=== PATIENT | male | born 1935 | race Caucasian/White ===

== ENCOUNTER 2020-07-08 18:11 | Inpatient (IN) | payer MEDICARE ==
[~2020-07-08 18:11] MED LIST: AMIODARONE HCL200 MG PO; ASPIRIN CHEWABL81 MG PO; BUMETANIDE1 MG PO; CARDIZEM30 MG PO; CENTRUM COMPLE1 EACH PO; COLACE100 MG PO; COREG 6.25MG6.25 MG PO; COREG25 MG PO; DIGITEK125 MCG PO; ELIQUIS2.5 MG PO; ELIQUIS5 MG PO; FLAGYL500 MG PO; FUROSEMIDE 20MG20 MG PO; IMDUR 30MG TABL30 MG PO; LEVAQUIN750 MG PO; LEXAPRO20 MG PO; LIPITOR40 MG PO; LOW DOSE ASPIRI81 MG PO; MICRO-K10 MEQ PO; NEURONTIN300 MG PO; NITROQUIK SL0.4 MG SL; PLAVIX75 MG PO; SINEQUAN10 MG PO; SYNTHROID25 MCG PO; TOPROL XL 25MG25 MG PO; ULTRAM50 MG PO
[2020-07-08 19:24] LABS: BASOPHIL 0.2 % (0-2); EOSINOPHIL 0.7 % (0-7); HCT 38.8 % (42.0-52.0); HGB 12.7 g/dl (13.2-18.0); MCHC 32.7 g/dL (32.0-36.0); MCV 91.7 fL (78.0-100.0); MONOCYTE 8.6 % (0-12); MPV 10.1 fL (6.0-9.5); NEUTROPHIL 83.8 % (41-80); NRBC 0; PLT 273 K/uL (150-400); RBC 4.23 M/uL (4.70-6.00); RDW 14.8 % (11.5-14.0); WBC 5.8 K/uL (4.0-10.5)
[2020-07-08 19:28] LABS: INR 1.21 (0.9-1.2); PROTHROMBIN TIME 14.5 SECONDS (11.4-13.6); PTT 38.6 SECONDS (22.2-34.7)
[2020-07-08 19:36] LABS: BILIRUBIN - TOTAL 0.6 mg/dL (0.2-1.0); BUN/CREAT RATIO (CALC) 28.7 RATIO; CREATININE 1.01 mg/dL (0.67-1.17); MAGNESIUM 2.1 mg/dL (1.8-2.4)
[2020-07-08 19:41] LABS: PRO-BNP 3180 pg/mL (<450)
[2020-07-08 19:42] LABS: LACTIC ACID 1.8 mmol/L (0.4-1.9)
[2020-07-08 20:45] LABS: CORONAVIRUS 2019 SARS-COV-2 POSITIVE (NEGATIVE)
[2020-07-08 20:46] LABS: INFLUENZA A NAA NEGATIVE (NEGATIVE)
[2020-07-08 23:57] LABS: BILIRUBIN 1+ mg/dL (NEGATIVE); BLOOD 1+ Ery/uL (NEGATIVE); CLARITY CLEAR (CLEAR); COLOR YELLOW (YELLOW); GLUCOSE (U) NORMAL (NORMAL); LEUKOCYTES NEGATIVE Leu/uL (NEGATIVE); NITRITE NEGATIVE (NEGATIVE); PROTEIN 1+ mg/dL (NEGATIVE); SPECIFIC GRAVITY 1.025 (1.001-1.030); UROBILINOGEN 0.2 mg/dL (0.2-1.0)
[2020-07-09 00:21] LABS: BACTERIA TRACE; URINARY WBC RARE
[2020-07-09] MEDS ORDERED: DICLOFENAC SODI75 MG PO (02:43)
[2020-07-09] MEDS ORDERED: PRILOSEC20 MG PO (02:44)
[2020-07-09] MEDS ORDERED: ZOLOFT50 MG PO (02:45)
[2020-07-09 06:51] LABS: BASOPHIL 0.2 % (0-2); EOSINOPHIL 0.6 % (0-7); HCT 34.1 % (42.0-52.0); HGB 11.4 g/dl (13.2-18.0); LYMPHOCYTE 7.3 % (15-48); MCH 30.6 pg (25.0-31.0); MCHC 33.4 g/dL (32.0-36.0); MCV 91.4 fL (78.0-100.0); MONOCYTE 8.6 % (0-12); MPV 9.5 fL (6.0-9.5); NEUTROPHIL 82.4 % (41-80); NRBC 0; PLT 222 K/uL (150-400); RBC 3.73 M/uL (4.70-6.00); RDW 14.8 % (11.5-14.0); WBC 5.3 K/uL (4.0-10.5)
[2020-07-09 07:31] LABS: ALBUMIN 2.5 g/dL (3.4-5.0); BILIRUBIN - TOTAL 0.5 mg/dL (0.2-1.0); BUN/CREAT RATIO (CALC) 27.6 RATIO; CREATININE 0.98 mg/dL (0.67-1.17); GLOBULIN (CALCULATION) 3.6 g/dL; POTASSIUM 4.2 mmol/L (3.5-5.1); TOTAL PROTEIN 6.1 g/dL (6.4-8.2)
--- NOTE | 2020-07-09 11:00 | NUR ---
LIVES WITH SPOUSE; PT IS AN INPT; PLEASE ADVISE OF D/C NEEDS: PT CURRENTLY HAS COVID
[2020-07-10 04:01] LABS: BASOPHIL 0.1 % (0-2); EOSINOPHIL 0.1 % (0-7); HCT 34.1 % (42.0-52.0); HGB 11.3 g/dl (13.2-18.0); LYMPHOCYTE 3.1 % (15-48); MCH 30.2 pg (25.0-31.0); MCHC 33.1 g/dL (32.0-36.0); MCV 91.2 fL (78.0-100.0); MONOCYTE 9.4 % (0-12); MPV 9.8 fL (6.0-9.5); NEUTROPHIL 86.1 % (41-80); NRBC 0; PLT 259 K/uL (150-400); RBC 3.74 M/uL (4.70-6.00); RDW 14.8 % (11.5-14.0); WBC 7.4 K/uL (4.0-10.5)
[2020-07-10 04:21] LABS: BUN/CREAT RATIO (CALC) 31.4 RATIO; CREATININE 1.21 mg/dL (0.67-1.17); POTASSIUM 4.5 mmol/L (3.5-5.1)
--- NOTE | 2020-07-10 15:44 | NUR ---
07/10/20 Mr. Ross lives at home with his spouse. He has a rw, 3in1, cane, and 3in1. Discharge options of returning home with HH or a SNF placement with [facility] Ross. They prefer to return home with [facility]; affliation explained. - Will monitor for 02 needs. - PT recommended a tag meter operator. This is not a covered Medicare item. Mr. Ross declined the tag meter operator.
[2020-07-11 05:17] LABS: BASOPHIL 0 % (0-2); EOSINOPHIL 0 % (0-7); HCT 40.3 % (42.0-52.0); HGB 13.3 g/dl (13.2-18.0); LYMPHOCYTE 5.1 % (15-48); MCH 30.2 pg (25.0-31.0); MCV 91.6 fL (78.0-100.0); MONOCYTE 7.1 % (0-12); MPV 9.4 fL (6.0-9.5); NEUTROPHIL 86.3 % (41-80); NRBC 0; PLT 343 K/uL (150-400); RDW 14.8 % (11.5-14.0); WBC 5.9 K/uL (4.0-10.5)
[2020-07-11 05:40] LABS: BUN/CREAT RATIO (CALC) 40.2 RATIO; C-REACTIVE PROTEIN 17.1 mg/dL (<=0.90); CREATININE 1.17 mg/dL (0.67-1.17); POTASSIUM 4.6 mmol/L (3.5-5.1)
--- NOTE | 2020-07-11 10:56 | NUR ---
1000 PATIENT HAD 6 DEZ OF VTACH ON MONITOR. MD ROBLERO AWARE. NO NEW ORDERS
[2020-07-11] MEDS ORDERED: CARDIZEM CD240 MG PO (12:34)
[2020-07-11] MEDS ORDERED: ELIQUIS5 MG PO (12:34)
[2020-07-11] MEDS ORDERED: DEXAMETHASONE 4M4 MG PO (12:34)
[2020-07-11] MEDS ORDERED: TOPROL XL 50 MG50 MG PO (12:34)
--- NOTE | 2020-07-11 12:36 | NUR ---
07/09 A referral was made to [facility], affliation explained. [facility] will deliver . Report given to JINNY Babin RN.
[2020-07-11] MEDS ORDERED: PERCOCET 5-3251 EACH PO (14:11)
[2020-07-12 05:38] LABS: BASOPHIL 0.1 % (0-2); EOSINOPHIL 0 % (0-7); HCT 35.7 % (42.0-52.0); HGB 11.9 g/dl (13.2-18.0); MCH 29.7 pg (25.0-31.0); MCHC 33.3 g/dL (32.0-36.0); MONOCYTE 6.5 % (0-12); MPV 9.6 fL (6.0-9.5); NEUTROPHIL 90.3 % (41-80); NRBC 0; PLT 357 K/uL (150-400); RBC 4.01 M/uL (4.70-6.00); RDW 14.6 % (11.5-14.0)
[2020-07-12 05:41] LABS: WBC 11.4 K/uL (4.0-10.5)
[2020-07-12 07:40] LABS: BUN/CREAT RATIO (CALC) 48.2 RATIO; C-REACTIVE PROTEIN 8.8 mg/dL (<=0.90); CREATININE 1.12 mg/dL (0.67-1.17); POTASSIUM 5.3 mmol/L (3.5-5.1)
--- NOTE | 2020-07-12 15:21 | NUR ---
07/12/20 Ms. Ross reports to be unable to care for Mr. Ross at home because she also has COVID. Mr. Ross is in agreement with placement. [facility] is reviewing for possible admission. Insurance authorization will be required. Report given to Dr. Zuñiga and JINNY Navas RN.
== END 2020-07-12 18:19 | disposition home health service (06) | DRG 308 ==
LOC: FER 18:11 → FTCU 23:05
PROVIDERS: Allergy & Immunology Allergy; Emergency Medicine; Nurse Practitioner; Nurse Practitioner Family; ADMIT Internal Medicine
PROC: 8E0ZXY6 Isolation (ICD-10-PCS; principal; 2020-07-08)
PROC: XW033E5 Introduction of Remdesivir Anti-infective into Peripheral Vein, Percutaneous Approach, New Technology Group 5 (ICD-10-PCS; 2020-07-11)
PROC: 3E0333Z Introduction of Anti-inflammatory into Peripheral Vein, Percutaneous Approach (ICD-10-PCS; 2020-07-11)
PROC: B24BZZZ Ultrasonography of Heart with Aorta (ICD-10-PCS; 2020-07-12)
DX: I48.92 Unspecified atrial flutter (principal); U07.1 COVID-19; J12.82 Pneumonia due to coronavirus disease 2019; S22.089A Unspecified fracture of T11-T12 vertebra, initial encounter for closed fracture; J44.0 Chronic obstructive pulmonary disease with (acute) lower respiratory infection; I50.20 Unspecified systolic (congestive) heart failure; W19.XXXA Unspecified fall, initial encounter; E78.5 Hyperlipidemia, unspecified; Z66 Do not resuscitate; I25.10 Atherosclerotic heart disease of native coronary artery without angina pectoris; M19.90 Unspecified osteoarthritis, unspecified site; Z86.73 Personal history of transient ischemic attack (TIA), and cerebral infarction without residual deficits; Z95.5 Presence of coronary angioplasty implant and graft; Z90.49 Acquired absence of other specified parts of digestive tract; Z95.0 Presence of cardiac pacemaker; Z79.01 Long term (current) use of anticoagulants; I25.2 Old myocardial infarction; Z85.828 Personal history of other malignant neoplasm of skin; Z87.891 Personal history of nicotine dependence; I11.0 Hypertensive heart disease with heart failure
CPT/HCPCS: 36415; 70450; 71250; 71275; 72131; 74230; 80048; 80053; 81001; 83605; 83690; 83735; 83874; 83880; 84145; 84484; 85025; 85379; 85610; 85730; 86140; 87040; 87088; 92526; 92611; 93005; 94010; 94762; 97110; 97116; 97162; 97530-GP; C9399; J1100; J1170; J2270; J2405; J7040; J7050; Q9967; U0002

== ENCOUNTER 2020-08-27 12:47 | Inpatient (IN) | payer MEDICARE ==
[~2020-08-27 12:47] MED LIST changes: +CARDIZEM CD240 MG PO; +DEXAMETHASONE 4M4 MG PO; +DICLOFENAC SODI75 MG PO; +PERCOCET 5-3251 EACH PO; +PRILOSEC20 MG PO; +TOPROL XL 50 MG50 MG PO; +ZOLOFT50 MG PO
[2020-08-27 15:37] LABS: BASOPHIL 0.3 % (0-2); EOSINOPHIL 1.1 % (0-7); HCT 28.8 % (42.0-52.0); HGB 9.2 g/dl (13.2-18.0); LYMPHOCYTE 7.8 % (15-48); MCHC 31.9 g/dL (32.0-36.0); MCV 93.8 fL (78.0-100.0); MONOCYTE 5.7 % (0-12); NEUTROPHIL 84.2 % (41-80); NRBC 0; PLT 315 K/uL (150-400); RBC 3.07 M/uL (4.70-6.00); RDW 17.1 % (11.5-14.0); WBC 8.7 K/uL (4.0-10.5)
[2020-08-27 15:59] LABS: ALBUMIN 2.2 g/dL (3.4-5.0); BILIRUBIN - TOTAL 0.4 mg/dL (0.2-1.0); BUN/CREAT RATIO (CALC) 8.7 RATIO; CREATININE 5.07 mg/dL (0.67-1.17); GLOBULIN (CALCULATION) 3.2 g/dL; POTASSIUM 4.9 mmol/L (3.5-5.1); TOTAL PROTEIN 5.4 g/dL (6.4-8.2)
[2020-08-27 17:05] LABS: LACTIC ACID 1.1 mmol/L (0.4-1.9)
[2020-08-27 17:25] LABS: BILIRUBIN 1+ mg/dL (NEGATIVE); BLOOD NEGATIVE Ery/uL (NEGATIVE); CLARITY HAZY (CLEAR); COLOR YELLOW (YELLOW); GLUCOSE (U) NORMAL (NORMAL); LEUKOCYTES NEGATIVE Leu/uL (NEGATIVE); NITRITE NEGATIVE (NEGATIVE); PROTEIN TRACE (LOW) mg/dL (NEGATIVE); SPECIFIC GRAVITY >=1.030 (1.001-1.030); UROBILINOGEN 0.2 mg/dL (0.2-1.0)
[2020-08-27 17:32] LABS: BACTERIA 2+; SQUAMOUS EPITHELIAL CELLS 20-50; URINARY RBC RARE
[2020-08-27 17:33] LABS: AMORPHOUS URATES CRYSTALS MODERATE; CALCIUM OXALATE CRYSTALS TRACE
[2020-08-27 20:27] LABS: INR 2.01 (0.9-1.2); PROTHROMBIN TIME 21.7 SECONDS (11.4-13.6)
[2020-08-27 20:28] LABS: PTT 49.1 SECONDS (22.2-34.7)
[2020-08-27] MEDS ORDERED: ELIQUIS5 MG PO (21:09)
[2020-08-27] MEDS ORDERED: TRAMADOL HCL50 MG PO (21:10)
[2020-08-27] MEDS ORDERED: SYNTHROID25 MCG PO (21:11)
[2020-08-27] MEDS ORDERED: ZOLOFT50 MG PO (21:11)
[2020-08-27] MEDS ORDERED: LIPITOR40 MG PO (21:11)
[2020-08-27] MEDS ORDERED: COLACE100 MG PO (21:12)
[2020-08-27] MEDS ORDERED: VOLTAREN **OUT50 MG PO (21:12)
[2020-08-27] MEDS ORDERED: COREG6.25 MG PO (21:12)
[2020-08-27] MEDS ORDERED: METOPROLOL SUCC50 MG PO (21:13)
[2020-08-28 03:46] LABS: BASOPHIL 0.3 % (0-2); EOSINOPHIL 2.8 % (0-7); HCT 26.4 % (42.0-52.0); HGB 8.4 g/dl (13.2-18.0); LYMPHOCYTE 7.4 % (15-48); MCH 29.9 pg (25.0-31.0); MCHC 31.8 g/dL (32.0-36.0); MONOCYTE 8.9 % (0-12); MPV 8.7 fL (6.0-9.5); NEUTROPHIL 79.8 % (41-80); NRBC 0; PLT 265 K/uL (150-400); RBC 2.81 M/uL (4.70-6.00); RDW 17.2 % (11.5-14.0); WBC 7.2 K/uL (4.0-10.5)
[2020-08-28 04:19] LABS: ALBUMIN 1.8 g/dL (3.4-5.0); BILIRUBIN - TOTAL 0.3 mg/dL (0.2-1.0); BUN/CREAT RATIO (CALC) 8.9 RATIO; CREATININE 5.06 mg/dL (0.67-1.17); GLOBULIN (CALCULATION) 3.4 g/dL; POTASSIUM 5.2 mmol/L (3.5-5.1); TOTAL PROTEIN 5.2 g/dL (6.4-8.2)
--- NOTE | 2020-08-28 11:18 | NUR ---
SPOKE TO BROOKE THE SPOUSE WE GOT DISCONNECTED AT END OF CONVERSATION HOWEVER SHE DID SAY HE NEEDS TO BE BUILT BACK UP INPT SOMEWHERE THAT SHE DONT THINK OUTPT REHAB OR HOME HEALTH IS AN OPTION HE IS TOO WEAK, I DID GO OVER THERAPY REC. AND SHE SAID HE NEEDS INPT CARE FOR A FEW WEEKS. HE HAS W/C CANE WALKER AT HOME; SPOUSE LIVES WITH HIM BUT IS LIMITED TO HELPING HIM WHEN HE IS THIS WEAK, SHE SAYS; SHE WANTS US TO SEE IF ANY INPT REHABS WILL TAKE HIM; WE ARE SENDING TO [facility]
[2020-08-28] MEDS ORDERED: CARVEDILOL6.25 MG PO (14:34)
[2020-08-28] MEDS ORDERED: VOLTAREN **OUT50 MG PO (14:34)
[2020-08-28] MEDS ORDERED: DEXAMETHASONE 2M2 MG PO (14:35)
[2020-08-28] MEDS ORDERED: PLAVIX75 MG PO (14:35)
[2020-08-28] MEDS ORDERED: CARDIZEM CD240 MG PO (14:35)
[2020-08-29 04:29] LABS: BASOPHIL 0.3 % (0-2); EOSINOPHIL 2.9 % (0-7); HCT 26.2 % (42.0-52.0); HGB 8.3 g/dl (13.2-18.0); LYMPHOCYTE 9.3 % (15-48); MCH 29.5 pg (25.0-31.0); MCHC 31.7 g/dL (32.0-36.0); MCV 93.2 fL (78.0-100.0); MONOCYTE 9.8 % (0-12); MPV 8.7 fL (6.0-9.5); NEUTROPHIL 76.6 % (41-80); NRBC 0; PLT 283 K/uL (150-400); RBC 2.81 M/uL (4.70-6.00); RDW 17.2 % (11.5-14.0); WBC 6.7 K/uL (4.0-10.5)
[2020-08-29 04:44] LABS: BUN/CREAT RATIO (CALC) 8.7 RATIO; CREATININE 5.17 mg/dL (0.67-1.17); POTASSIUM 5.3 mmol/L (3.5-5.1)
--- NOTE | 2020-08-30 02:03 | NUR ---
BISQUE TILE BURNER NOTIIFIED OF INCREASED SWELLING IN PT LEFT ARM, BISQUE TILE BURNER CAME AND LOOKED AT ARM AND STATED TO KEEP IT ELEVATED- NO OTHER NEW ORDERS
[2020-08-30 04:15] LABS: BASOPHIL 0.5 % (0-2); EOSINOPHIL 4.3 % (0-7); HGB 8.4 g/dl (13.2-18.0); LYMPHOCYTE 9.9 % (15-48); MCH 29.7 pg (25.0-31.0); MCHC 32.3 g/dL (32.0-36.0); MCV 91.9 fL (78.0-100.0); MONOCYTE 9.2 % (0-12); MPV 8.6 fL (6.0-9.5); NEUTROPHIL 74.4 % (41-80); NRBC 0; PLT 284 K/uL (150-400); RBC 2.83 M/uL (4.70-6.00); RDW 17.2 % (11.5-14.0); WBC 6.3 K/uL (4.0-10.5)
[2020-08-30 04:33] LABS: BUN/CREAT RATIO (CALC) 8.7 RATIO; CREATININE 5.29 mg/dL (0.67-1.17); POTASSIUM 5.2 mmol/L (3.5-5.1)
[2020-08-30 11:44] LABS: URINE CREATININE 135.29 mg/dL (29.00-226.00)
--- NOTE | 2020-08-30 15:50 | NUR ---
PT DID NOT WANT INPT REHAB AT [facility] FACILITES SHE IS WANTING HIM TO COME HOME ONCE MEDICALLY STABLE DR. JEAN BAPTISTE SAID HE IS STILL RECOVERING FROM THE IV ABX AND CREAT. BEING SO HIGH NOT MEDICALLY STABLE AND HOSPICE NOT APPROPRIATE AT THIS TIME.
[2020-08-31 04:36] LABS: BUN/CREAT RATIO (CALC) 8.3 RATIO; CREATININE 5.16 mg/dL (0.67-1.17); POTASSIUM 4.7 mmol/L (3.5-5.1)
--- NOTE | 2020-08-31 07:19 | NUR ---
EXHIBIT DESIGNER NOTIFIED OF OUTPUT OF 100 ML ALL NIGHT, NO NEW ORDERS
--- NOTE | 2020-08-31 10:26 | NUR ---
PT LEFT ARM +4 EDEMA LOWER EXTREMITY FROM ELBOW DOWN. AWARE. DC'D IV FLUIDS. PT HAS HAD PREVIOUS CANCER REMOVAL SURGERY ON LEFT ELBOW.
--- NOTE | 2020-08-31 13:14 | NUR ---
PT C/O EDWIGE, NOTIFIED AND OSIEL ORDERED. WILL REASSESS.
--- NOTE | 2020-09-01 13:09 | NUR ---
PT STATES HE IS NOT FEELING WELL TODAY. NOTIFIED AND RN SUGGESTED STARTING PT SERTRALINE BACK BUT MD STATES THAT IT IS IMCOMPATIBLE WTIH ZYVOX. MD STARTED HOME MED 25 MG METROPOLOL PO FOR PT SINUS TACH IN THE 114'S. PT HEAR TRATE IS STILL BETWEEN 88 AND 114'S. MD AWARE. PT ALSO C/O HIP AND BACK PAIN THIS AM, ORDERED NORCO 5. PT STATES HE IS TIRED AND HIS RIGHT HAND IS SHAKY. NOTIFIED.
[2020-09-02 03:41] LABS: BASOPHIL 0.4 % (0-2); EOSINOPHIL 5.7 % (0-7); HCT 27.9 % (42.0-52.0); HGB 9.1 g/dl (13.2-18.0); MCH 29.9 pg (25.0-31.0); MCHC 32.6 g/dL (32.0-36.0); MCV 91.8 fL (78.0-100.0); MONOCYTE 8.1 % (0-12); MPV 8.6 fL (6.0-9.5); NEUTROPHIL 74.6 % (41-80); NRBC 0; PLT 390 K/uL (150-400); RBC 3.04 M/uL (4.70-6.00); RDW 18.2 % (11.5-14.0); WBC 9.8 K/uL (4.0-10.5)
[2020-09-02 04:10] LABS: CREATININE 5.23 mg/dL (0.67-1.17); PHOSPHORUS 4.6 mg/dL (2.6-4.7); POTASSIUM 4.6 mmol/L (3.5-5.1)
--- NOTE | 2020-09-02 12:12 | NUR ---
Spoke with RN Eloise re: patient's poor appetite, and plans for ONS TID. Discussed prefs with patient for optimal intake.
--- NOTE | 2020-09-02 12:13 | NUR ---
Requested Tj for appetite stimulant from MD Zuñiga. verbalized approval of intervention for poor appetite and inadequte p.o. intake.
[2020-09-03 05:41] LABS: ALBUMIN 1.5 g/dL (3.4-5.0); BUN/CREAT RATIO (CALC) 8.1 RATIO; CREATININE 5.2 mg/dL (0.67-1.17); PHOSPHORUS 4.3 mg/dL (2.6-4.7); POTASSIUM 4.2 mmol/L (3.5-5.1)
[2020-09-04 04:33] LABS: BASOPHIL 0.5 % (0-2); EOSINOPHIL 5.5 % (0-7); HCT 28.9 % (42.0-52.0); HGB 9.8 g/dl (13.2-18.0); LYMPHOCYTE 9.5 % (15-48); MCH 30.4 pg (25.0-31.0); MCHC 33.9 g/dL (32.0-36.0); MCV 89.8 fL (78.0-100.0); MONOCYTE 7.6 % (0-12); MPV 8.3 fL (6.0-9.5); NEUTROPHIL 73.2 % (41-80); NRBC 0; PLT 384 K/uL (150-400); RBC 3.22 M/uL (4.70-6.00); RDW 18.1 % (11.5-14.0); WBC 10.6 K/uL (4.0-10.5)
[2020-09-04 04:43] LABS: CREATININE 5.24 mg/dL (0.67-1.17); MAGNESIUM 1.7 mg/dL (1.8-2.4); PHOSPHORUS 4.4 mg/dL (2.6-4.7); POTASSIUM 3.9 mmol/L (3.5-5.1)
[2020-09-05 05:02] LABS: BUN/CREAT RATIO (CALC) 7.6 RATIO; CREATININE 5.13 mg/dL (0.67-1.17); POTASSIUM 3.6 mmol/L (3.5-5.1)
[2020-09-06 05:26] LABS: ALBUMIN 1.7 g/dL (3.4-5.0); BUN/CREAT RATIO (CALC) 7.7 RATIO; CREATININE 4.95 mg/dL (0.67-1.17); PHOSPHORUS 4.3 mg/dL (2.6-4.7); POTASSIUM 3.4 mmol/L (3.5-5.1)
--- NOTE | 2020-09-06 09:08 | NUR ---
PT HEART RATE AT 169 AFIB. NOTIFIED AND ORDERED EKG STAT, 5MG IV LOPRESSOR AND THEN QDAY METROPOLOL 25 MG FROM HOME MED LIST. WILL ASSESS BP AND HEART RATE.
--- NOTE | 2020-09-06 10:30 | NUR ---
Mr. Ross is ready for discharge. He is in agreement with a SNF admission as recommended if his spouse agrees. Mr. Ross would prefer placement locally. Multiple messages were left for Ms. Ross on 09/05/20. Ms. Ross was reached early evening. She is in support of a SNF admission. Choices are [facility], [facility], [facility], [facility] or [facility]. Referrals have been made via [facility] and fax.
--- NOTE | 2020-09-06 15:30 | NUR ---
PT IS WEAK AND LETHARGIC TODAY. PT DID WORK WITH PT TO GET UP FROM THE BED TO CHAIR. PT LET RN KNOW THAT HIS BOTTOM IS VERY RED AND SLOW TO ADINA. CREAM WAS APPLIED AND RN WILL ASSESS WHEN PT MOVES BACK TO BED. PT LEFT SIDE SEEMS WEAKER THAN RIGHT. NOTIFIED, NO NEW ORDERS.
[2020-09-07 04:01] LABS: BASOPHIL 0.2 % (0-2); EOSINOPHIL 2.2 & (0-7); HCT 23.8 % (42.0-52.0); HGB 8.2 g/dl (13.2-18.0); LYMPHOCYTE 5.5 % (15-48); MCH 30.3 pg (25.0-31.0); MCHC 34.5 g/dL (32.0-36.0); MCV 87.8 fL (78.0-100.0); MONOCYTE 3.9 % (0-12); MPV 8.5 fL (6.0-9.5); NEUTROPHIL 87.8 % (41-80); PLT 262 K/uL (150-400); RBC 2.71 M/uL (4.70-6.00); RDW 17.6 % (11.5-14.0); WBC 10.45 K/uL (4.0-10.5)
[2020-09-07 04:06] LABS: ALBUMIN 2.6 g/dL (3.4-5.0); BILIRUBIN - TOTAL 0.5 mg/dL (0.2-1.0); BUN/CREAT RATIO (CALC) 7.8 RATIO; CREATININE 4.87 mg/dL (0.67-1.17); GLOBULIN (CALCULATION) 2.8 g/dL; MAGNESIUM 1.5 mg/dL (1.8-2.4); POTASSIUM 4.2 mmol/L (3.5-5.1); TOTAL PROTEIN 5.4 g/dL (6.4-8.2)
[2020-09-08 05:46] LABS: BUN/CREAT RATIO (CALC) 8.8 RATIO; CREATININE 4.44 mg/dL (0.67-1.17)
--- NOTE | 2020-09-09 10:16 | NUR ---
RD follow-up re: appetite and p.o. intake. Megace started 09/02; patient's intake showing slow but gradual improvements. Shift assessments documenting diarrhea since 09/07; patient on Vanc with COVID+ test - possible cause. Will rec Metamucil BID to add soluable fiber to diet.
[2020-09-09] MEDS ORDERED: NORCO 5-325 TA1 EACH PO (14:22)
[2020-09-09] MEDS ORDERED: CLONAZEPAM0.5 MG PO (14:22)
[2020-09-09] MEDS ORDERED: ACETAMINOPHEN325 MG PO (14:22)
[2020-09-09] MEDS ORDERED: ATROVENT HFA12.9 GM INH (14:22)
[2020-09-09] MEDS ORDERED: ELIQUIS2.5 MG PO (14:22)
[2020-09-09] MEDS ORDERED: VIBRAMYCIN100 MG PO (14:22)
[2020-09-09] MEDS ORDERED: PROVENTIL HFA6.7 GM INH (14:22)
[2020-09-09] MEDS ORDERED: PANTOPRAZOLE SO40 MG PO (14:22)
[2020-09-09] MEDS ORDERED: MEGACE ORA6 TSP/1 OZ PO (14:22)
== END 2020-09-09 17:15 | DRG 682 ==
LOC: FER 12:47 → FTCU 17:16
PROVIDERS: Allergy & Immunology Allergy; Emergency Medicine; Internal Medicine Nephrology; Nurse Practitioner; ADMIT Internal Medicine
DX: N17.0 Acute kidney failure with tubular necrosis (principal); U07.1 COVID-19; J18.9 Pneumonia, unspecified organism; I48.20 Chronic atrial fibrillation, unspecified; R78.81 Bacteremia; R60.9 Edema, unspecified; E86.0 Dehydration; I12.9 Hypertensive chronic kidney disease with stage 1 through stage 4 chronic kidney disease, or unspecified chronic kidney disease; T36.8X5A Adverse effect of other systemic antibiotics, initial encounter; I48.91 Unspecified atrial fibrillation; R53.1 Weakness; M79.89 Other specified soft tissue disorders; N18.9 Chronic kidney disease, unspecified; R00.0 Tachycardia, unspecified; E87.6 Hypokalemia; R53.83 Other fatigue; R34 Anuria and oliguria; F03.90 Unspecified dementia, unspecified severity, without behavioral disturbance, psychotic disturbance, mood disturbance, and anxiety; I25.10 Atherosclerotic heart disease of native coronary artery without angina pectoris; Z96.652 Presence of left artificial knee joint; M19.90 Unspecified osteoarthritis, unspecified site; Z95.5 Presence of coronary angioplasty implant and graft; Z86.73 Personal history of transient ischemic attack (TIA), and cerebral infarction without residual deficits; Z85.828 Personal history of other malignant neoplasm of skin; Z90.49 Acquired absence of other specified parts of digestive tract; Z95.810 Presence of automatic (implantable) cardiac defibrillator; Z98.42 Cataract extraction status, left eye; Z98.41 Cataract extraction status, right eye; Z79.01 Long term (current) use of anticoagulants; Z79.899 Other long term (current) drug therapy; I25.2 Old myocardial infarction; Z87.891 Personal history of nicotine dependence; F41.9 Anxiety disorder, unspecified
CPT/HCPCS: 36415; 36600; 70450; 71045; 73502; 73564; 74018; 76770; 80048; 80053; 80069; 80202; 81001; 82550; 82570; 82803; 82962; 83605; 83735; 84100; 84145; 84300; 84484; 85025; 85610; 85730; 87040; 87088; 87205; 93005; 94010; 94640; 94667; 94668; 96365; 96368; 96375; 97110; 97116; 97162; 97166; 97530; 97530-GP; 97535; J1940; J2020; J2405; J2543; J3370; J7030; J7050; P9046; U0002

== ENCOUNTER 2020-09-14 11:04 | Inpatient (IN) | payer MEDICARE ==
[~2020-09-14 11:04] MED LIST changes: +ACETAMINOPHEN325 MG PO; +ATROVENT HFA12.9 GM INH; +CARVEDILOL6.25 MG PO; +CLONAZEPAM0.5 MG PO; +COREG6.25 MG PO; +DEXAMETHASONE 2M2 MG PO; +MEGACE ORA6 TSP/1 OZ PO; +METOPROLOL SUCC50 MG PO; +NORCO 5-325 TA1 EACH PO; +PANTOPRAZOLE SO40 MG PO; +PROVENTIL HFA6.7 GM INH; +TRAMADOL HCL50 MG PO; +VIBRAMYCIN100 MG PO; +VOLTAREN **OUT50 MG PO
[2020-09-14 11:52] LABS: BASOPHIL 0.4 % (0-2); EOSINOPHIL 0.5 % (0-7); HCT 22.4 % (42.0-52.0); HGB 7.6 g/dl (13.2-18.0); LYMPHOCYTE 4.9 % (15-48); MCH 30.3 pg (25.0-31.0); MCHC 33.9 g/dL (32.0-36.0); MCV 89.2 fL (78.0-100.0); MONOCYTE 10.2 % (0-12); MPV 10.6 fL (6.0-9.5); NRBC 0; PLT 321 K/uL (150-400); RBC 2.51 M/uL (4.70-6.00); RDW 18.2 % (11.5-14.0); WBC 11.5 K/uL (4.0-10.5)
[2020-09-14 11:57] LABS: INR 1.65 (0.9-1.2); PROTHROMBIN TIME 18.5 SECONDS (11.4-13.6)
[2020-09-14 12:12] LABS: ALBUMIN 2.5 g/dL (3.4-5.0); BILIRUBIN - TOTAL 0.4 mg/dL (0.2-1.0); BUN/CREAT RATIO (CALC) 14.6 RATIO; CREATININE 2.74 mg/dL (0.67-1.17); GLOBULIN (CALCULATION) 3.5 g/dL
[2020-09-14 12:13] LABS: CKMB 1.8 ng/mL (0.0-3.6)
[2020-09-14] MEDS ORDERED: ZOLOFT 25MG TAB25 MG PO (15:29)
[2020-09-14 15:32] LABS: HCT 24.9 % (42.0-52.0); HGB 8.1 g/dl (13.2-18.0); MCHC 32.5 g/dL (32.0-36.0); MCV 92.2 fL (78.0-100.0); MPV 10.4 fL (6.0-9.5); RBC 2.7 M/uL (4.70-6.00); RDW 18.6 % (11.5-14.0); WBC 12.9 K/uL (4.0-10.5)
[2020-09-14 16:53] LABS: BILIRUBIN NEGATIVE (NEGATIVE); BLOOD TRACE-INTACT Ery/uL (NEGATIVE); CLARITY CLEAR (CLEAR); COLOR YELLOW (YELLOW); GLUCOSE (U) NORMAL (NORMAL); LEUKOCYTES 1+ Leu/uL (NEGATIVE); NITRITE NEGATIVE (NEGATIVE); PROTEIN NEGATIVE (NEGATIVE); SPECIFIC GRAVITY 1.015 (1.001-1.030); UROBILINOGEN 0.2 mg/dL (0.2-1.0)
[2020-09-14 17:02] LABS: BACTERIA TRACE; URINARY RBC RARE
[2020-09-14 21:58] LABS: HCT 26.3 % (42.0-52.0); HGB 8.9 g/dL (13.2-18.0)
[2020-09-15 03:56] LABS: BASOPHIL 0.5 % (0-2); HCT 23.8 % (42.0-52.0); HGB 8.4 g/dl (13.2-18.0); LYMPHOCYTE 6.6 % (15-48); MCH 30.9 pg (25.0-31.0); MCHC 35.3 g/dL (32.0-36.0); MCV 87.5 fL (78.0-100.0); MONOCYTE 10.5 % (0-12); NEUTROPHIL 74.3 % (41-80); NRBC 0; PLT 309 K/uL (150-400); RBC 2.72 M/uL (4.70-6.00); RDW 17.6 % (11.5-14.0); WBC 11.5 K/uL (4.0-10.5)
[2020-09-15 04:16] LABS: BUN/CREAT RATIO (CALC) 14.8 RATIO; CREATININE 2.57 mg/dL (0.67-1.17); MAGNESIUM 1.3 mg/dL (1.8-2.4); PHOSPHORUS 3.6 mg/dL (2.6-4.7); POTASSIUM 3.5 mmol/L (3.5-5.1)
--- NOTE | 2020-09-15 16:36 | NUR ---
VERBALLY ORDERED PATIENTS LEFT ARM TO BE WRAPPED WITH IVANA BANDAGE TO REDUCE EDEMA AND IMPROVE BRUISE. DR WAS ABLE TO ASSESS THE BRUISE AND SWELLING IN PERSON. WILL CONTINUE TO MONITOR.
[2020-09-16 05:37] LABS: BASOPHIL 0.2 % (0-2); EOSINOPHIL 0.5 % (0-7); HCT 22.6 % (42.0-52.0); HGB 7.9 g/dl (13.2-18.0); LYMPHOCYTE 4.9 % (15-48); MCH 30.7 pg (25.0-31.0); MCV 87.9 fL (78.0-100.0); NEUTROPHIL 80.1 % (41-80); NRBC 0; PLT 354 K/uL (150-400); RBC 2.57 M/uL (4.70-6.00); RDW 17.9 % (11.5-14.0); WBC 11.3 K/uL (4.0-10.5)
[2020-09-16 06:20] LABS: BUN/CREAT RATIO (CALC) 14.3 RATIO; CREATININE 2.66 mg/dL (0.67-1.17); MAGNESIUM 1.5 mg/dL (1.8-2.4); POTASSIUM 4.2 mmol/L (3.5-5.1)
--- NOTE | 2020-09-16 15:30 | NUR ---
09/16/20 Mr. Ross was admitted from [facility]. [facility] will accept back per Natalia Flores. A pre-auth will be required.
--- NOTE | 2020-09-17 10:01 | NUR ---
09/17/20 Dr. Zuñiga anticipates patient to be ready to return to [facility] on 09/18. Clinicals have been sent to [facility] via [facility] for initiation of a pre-cert.
[2020-09-17 17:00] LABS: BILIRUBIN NEGATIVE (NEGATIVE); BLOOD 1+ Ery/uL (NEGATIVE); CLARITY CLEAR (CLEAR); COLOR YELLOW (YELLOW); GLUCOSE (U) NORMAL (NORMAL); LEUKOCYTES 1+ Leu/uL (NEGATIVE); NITRITE NEGATIVE (NEGATIVE); PROTEIN NEGATIVE (NEGATIVE); SPECIFIC GRAVITY 1.025 (1.001-1.030); UROBILINOGEN 0.2 mg/dL (0.2-1.0); pH 5.5 (5.0-9.0)
[2020-09-17 17:10] LABS: BACTERIA TRACE; MUCOUS TRACE
[2020-09-18 04:16] LABS: BASOPHIL 0.2 % (0-2); EOSINOPHIL 0.6 % (0-7); HGB 8.2 g/dl (13.2-18.0); LYMPHOCYTE 6.3 % (15-48); MCH 30.8 pg (25.0-31.0); MCHC 34.2 g/dL (32.0-36.0); MCV 90.2 fL (78.0-100.0); MONOCYTE 9.3 % (0-12); MPV 9.6 fL (6.0-9.5); NEUTROPHIL 78.6 % (41-80); NRBC 0; PLT 447 K/uL (150-400); RBC 2.66 M/uL (4.70-6.00); RDW 18.6 % (11.5-14.0); WBC 10.3 K/uL (4.0-10.5)
[2020-09-18 04:21] LABS: BUN/CREAT RATIO (CALC) 17.5 RATIO; CREATININE 2.4 mg/dL (0.67-1.17); POTASSIUM 4.2 mmol/L (3.5-5.1)
[2020-09-18] MEDS ORDERED: CARDIZEM60 MG PO (07:54)
[2020-09-18] MEDS ORDERED: AMIODARONE HCL200 MG PO (07:54)
[2020-09-18] MEDS ORDERED: DESYREL50 MG PO (07:54)
[2020-09-18] MEDS ORDERED: DOXYCYCLINE MO100 MG PO (07:54)
--- NOTE | 2020-09-18 13:54 | NUR ---
09/18/20 [facility] has received insurance pre-auth for admission today. A report was given to Dr. Zuñiga and JINNY Orourke RN. Dr. Zuñiga reports patient to require EMS transport.
== END 2020-09-18 17:15 | DRG 280 ==
LOC: FER 11:04 → FTCU 12:32 → FICU 12:32 → FTCU 09-16 14:17
PROVIDERS: Allergy & Immunology Allergy; Emergency Medicine; Internal Medicine Cardiovascular Disease; Nurse Practitioner; ADMIT Internal Medicine
PROC: 30233N1 Transfusion of Nonautologous Red Blood Cells into Peripheral Vein, Percutaneous Approach (ICD-10-PCS; principal; 2020-09-14)
PROC: 05HD33Z Insertion of Infusion Device into Right Cephalic Vein, Percutaneous Approach (ICD-10-PCS; 2020-09-15)
DX: I47.2 Ventricular tachycardia (principal); N17.0 Acute kidney failure with tubular necrosis; I21.4 Non-ST elevation (NSTEMI) myocardial infarction; I50.21 Acute systolic (congestive) heart failure; L03.114 Cellulitis of left upper limb; T82.897A Other specified complication of cardiac prosthetic devices, implants and grafts, initial encounter; I13.0 Hypertensive heart and chronic kidney disease with heart failure and stage 1 through stage 4 chronic kidney disease, or unspecified chronic kidney disease; I25.5 Ischemic cardiomyopathy; M19.90 Unspecified osteoarthritis, unspecified site; I34.0 Nonrheumatic mitral (valve) insufficiency; I48.20 Chronic atrial fibrillation, unspecified; Z96.652 Presence of left artificial knee joint; I25.2 Old myocardial infarction; Z86.73 Personal history of transient ischemic attack (TIA), and cerebral infarction without residual deficits; Z85.828 Personal history of other malignant neoplasm of skin; Z90.49 Acquired absence of other specified parts of digestive tract; Z98.42 Cataract extraction status, left eye; Z98.41 Cataract extraction status, right eye; Z95.810 Presence of automatic (implantable) cardiac defibrillator; Z87.891 Personal history of nicotine dependence; Z79.01 Long term (current) use of anticoagulants; Z79.899 Other long term (current) drug therapy; Z86.11 Personal history of tuberculosis; Z86.19 Personal history of other infectious and parasitic diseases; Z86.16 Personal history of COVID-19
CPT/HCPCS: 36415; 36430; 71045; 73070; 73090; 80048; 80053; 81001; 82553; 83735; 83880; 84100; 84443; 84484; 85014; 85018; 85025; 85610; 85730; 86850; 86900; 86901; 86922; 93005; 94640; 97110; 97162; 97530-GP; J0282; J1170; J1940; J3475; J3480; J7060; P9016